=== PATIENT | female | born 1940 | race Caucasian/White ===

== ENCOUNTER → 2017-12-08 | Outpatient (CLI) | payer OTHER ==
[~2017-12-08] MED LIST: ALBU90OI INH; CEPH500 PO; CHOL10002 PO; LEVSOD75 PO; Prednisone20 MG PO; SPIRIVA RESPIMAT4 G1 IH
== END | disposition home or self-care (01) ==
LOC: PLD 07:44 → LAB SHORT 07:44
DX: C44.329 Squamous cell carcinoma of skin of other parts of face (principal); L57.8 Other skin changes due to chronic exposure to nonionizing radiation
CPT/HCPCS: 88305

== ENCOUNTER → 2018-05-17 | Outpatient (CLI) | payer OTHER | END | disposition home or self-care (01) | LOC: LAB SHORT 11:50 → LAB 11:50 | DX: E03.9 Hypothyroidism, unspecified (principal) | CPT/HCPCS: 84443 ==

== ENCOUNTER 2019-06-07 16:47 | Observation (INO) | payer OTHER ==
[~2019-06-07] VITALS: Ht 165.1 cm; Wt 40.9 kg
[2019-06-07 17:21] LABS: BASOPHILS ABSOLUTE AUTO 0.09 K/mm3 (0.00-0.23); BASOPHILS PERCENT AUTO 1 % (0-2); EOSINOPHILS ABSOLUTE AUTO 0.35 K/mm3 (0.00-0.68); EOSINOPHILS PERCENT AUTO 4 % (0-6); Hematocrit 44.2 % (33.0-51.0); Hemoglobin 14.3 g/dL (11.5-16.0); IMMATURE GRAN ABSOLUTE AUTO 0.02 K/mm3 (0.00-0.10); IMMATURE GRAN PERCENT AUTO 0 % (0-1); LYMPHOCYTES ABSOLUTE AUTO 2.55 K/mm3 (0.84-5.20); LYMPHOCYTES PERCENT AUTO 31 % (21-46); MONOCYTES ABSOLUTE AUTO 0.66 K/mm3 (0.16-1.47); MONOCYTES PERCENT AUTO 8 % (4-13); Mean Corpuscular HGB 30.3 pg (26.0-34.0); Mean Corpuscular HGB Conc 32.4 g/dL (31.5-36.5); Mean Corpuscular Volume 94 fL (80-100); Mean Platelet Volume 9.9 fL (9.1-12.4); NEUTROPHILS ABSOLUTE AUTO 4.57 K/mm3 (1.96-9.15); NEUTROPHILS PERCENT AUTO 56 % (41-73); Platelet Count 312 K/mm3 (150-400); RDW Coefficient Variation 13.6 % (11.7-14.2); RDW Standard Deviation 47.2 fL (35.1-46.3); Red Blood Cell Count 4.72 M/mm3 (3.80-5.20); White Blood Cell Count 8.24 K/mm3 (4.00-11.30)
[2019-06-07 17:48] LABS: Alanine Aminotransfer (ALT/SGP 26 U/L (12-78); Albumin, Blood 4.1 g/dL (3.4-5.0); Albumin/Globulin Ratio 1.1 (0.8-1.8); Alk Phos 76 U/L (50-136); Anion Gap 6 mmol/L (6-16); Aspartate Aminotrans (AST/SGOT 22 U/L (12-37); Bilirubin, Total 0.5 mg/dL (0.1-1.0); Blood Urea Nitrogen 14 mg/dL (8-24); Bun/Creatinine Ratio 20.3 (12.0-20.0); CO2, Blood 28 mmol/L (21-32); Calcium, Blood 9.7 mg/dL (8.5-10.1); Chloride, Blood 99 mmol/L (98-108); Creatinine, Blood 0.69 mg/dL (0.40-1.00); Globulin, Blood 3.7 g/dL (2.2-4.0); Glomerular Filtration Rate >60 (60-); Glucose, Blood 87 mg/dL (70-99); Potassium, Blood 3.9 mmol/L (3.5-5.5); Sodium, Blood 133 mmol/L (136-145); Total Protein, Blood 7.8 g/dL (6.4-8.2)
[2019-06-08 04:45] LABS: BASOPHILS ABSOLUTE AUTO 0.07 K/mm3 (0.00-0.23); BASOPHILS PERCENT AUTO 1 % (0-2); EOSINOPHILS ABSOLUTE AUTO 0.31 K/mm3 (0.00-0.68); EOSINOPHILS PERCENT AUTO 5 % (0-6); Hematocrit 38.7 % (33.0-51.0); Hemoglobin 12.7 g/dL (11.5-16.0); IMMATURE GRAN ABSOLUTE AUTO 0.01 K/mm3 (0.00-0.10); IMMATURE GRAN PERCENT AUTO 0 % (0-1); LYMPHOCYTES ABSOLUTE AUTO 2.02 K/mm3 (0.84-5.20); LYMPHOCYTES PERCENT AUTO 33 % (21-46); MONOCYTES ABSOLUTE AUTO 0.53 K/mm3 (0.16-1.47); MONOCYTES PERCENT AUTO 9 % (4-13); Mean Corpuscular HGB 31.2 pg (26.0-34.0); Mean Corpuscular HGB Conc 32.8 g/dL (31.5-36.5); Mean Corpuscular Volume 95 fL (80-100); Mean Platelet Volume 9.8 fL (9.1-12.4); NEUTROPHILS ABSOLUTE AUTO 3.27 K/mm3 (1.96-9.15); NEUTROPHILS PERCENT AUTO 53 % (41-73); Platelet Count 273 K/mm3 (150-400); RDW Coefficient Variation 13.5 % (11.7-14.2); RDW Standard Deviation 47.7 fL (35.1-46.3); Red Blood Cell Count 4.07 M/mm3 (3.80-5.20); White Blood Cell Count 6.21 K/mm3 (4.00-11.30)
[2019-06-08 05:10] LABS: Anion Gap 5 mmol/L (6-16); Blood Urea Nitrogen 10 mg/dL (8-24); Bun/Creatinine Ratio 14.7 (12.0-20.0); CO2, Blood 28 mmol/L (21-32); Calcium, Blood 8.3 mg/dL (8.5-10.1); Chloride, Blood 105 mmol/L (98-108); Creatinine, Blood 0.68 mg/dL (0.40-1.00); Glomerular Filtration Rate >60 (60-); Glucose, Blood 80 mg/dL (70-99); Sodium, Blood 138 mmol/L (136-145)
--- NOTE | 2019-06-08 05:34 | NUR ---
SHIFT SUMMARY PT ADMITTED WITH PARTIAL SBO. IS ALERT AND ORIENTED, UP WITH SBA TO BATHROOM. PT STATES SHE HAD A BOWEL MOVEMENT YESTERDAY AM. FLEET ENEMA ORDERED, BUT PT REFUSED STATES SHE WILL TAKE A SUPPOSITORY IF NEEDED. BOWEL SOUND HYPOACTIVE, PT DENIES PAIN UPON ASSESSMENT. HAS THE URGE TO HAVE BM, BUT UNABLE TO DURING THE NIGHT. NO ACUTE EVENTS NOTED DURING THE NIGHT. TELE APPLIED WELL AND READS NSR WITH PAC'S. WILL CONTINUE TO MONITOR.
--- NOTE | 2019-06-08 11:41 | NUR ---
Advance Directive Education attempted. Upon receiving a referral requesting advance directive education, I spoke with patient about the education. Patient stated that she has an advance directive form sitting on her table at home and has not filled it out. Patient declined having any further education about the advance directive.
--- NOTE | 2019-06-08 18:06 | NUR ---
SHIFT SUMMARY THE PATIENT PRESENTED THIS SHIFT A&O X4, WITH DIMINISHED LUNG SOUNDS AND WITH VITALS WNL. THE PATIENT HAD A B/M THIS MORNING THAT WAS LARGED SOFT AND FORMED. THE PATIENT HAD X-RAYS THIS AM AND DR. ALCOCER WAS CONSULTED. THE PATIENT WAS ELEVATED TO FULL LIQUID DIET FOR DINNER AND CAN BE ADVANCED TOLERATED. THE PATIENT IS EATING HER DINNER AT THIS, WILL CONTINUE TO MONITOR.
[2019-06-09 04:55] LABS: Hematocrit 37.4 % (33.0-51.0); Hemoglobin 12.4 g/dL (11.5-16.0); Mean Corpuscular HGB 30.9 pg (26.0-34.0); Mean Corpuscular HGB Conc 33.2 g/dL (31.5-36.5); Mean Corpuscular Volume 93 fL (80-100); Mean Platelet Volume 10.1 fL (9.1-12.4); Platelet Count 254 K/mm3 (150-400); RDW Coefficient Variation 13.4 % (11.7-14.2); RDW Standard Deviation 45.6 fL (35.1-46.3); Red Blood Cell Count 4.01 M/mm3 (3.80-5.20); White Blood Cell Count 5.75 K/mm3 (4.00-11.30)
[2019-06-09 05:15] LABS: Anion Gap 4 mmol/L (6-16); Blood Urea Nitrogen 8 mg/dL (8-24); Bun/Creatinine Ratio 11.3 (12.0-20.0); CO2, Blood 28 mmol/L (21-32); Calcium, Blood 8.5 mg/dL (8.5-10.1); Chloride, Blood 105 mmol/L (98-108); Creatinine, Blood 0.71 mg/dL (0.40-1.00); Glomerular Filtration Rate >60 (60-); Glucose, Blood 82 mg/dL (70-99); Potassium, Blood 4.6 mmol/L (3.5-5.5); Sodium, Blood 137 mmol/L (136-145)
--- NOTE | 2019-06-09 06:28 | NUR ---
SHIFT SUMMARY PT SLEPT WELL T/O NIGHT. IVF'S CONTINUE WITHOUT DIFFICULTY. UP TO BATHROOM PER SELF. TELE NSR WITH RATE IN THE 60'S. NO ACUTE EVENTS NOTED DURING THE NIGHT, WILL CONTINUE TO MONITOR.
[2019-06-09] MEDS ORDERED: MIRALAX17 GM PO (10:07)
--- NOTE | 2019-06-09 10:07 | NUR ---
PATIENT TRANSFER THE PATIENT WAS TRANSFERRED TO ICU #8 PER DOCTOR REQUEST. THE PATIENT WAS TRANSFERRED AFTER REPORT WAS GIVEN TO ICU NURSE ANDRAE LAMAR.
--- NOTE | 2019-06-09 12:11 | NUR ---
Constipation Nutrition Education Completed.
--- NOTE | 2019-06-09 15:00 | NUR ---
PATIENT DISCHARGE THE PATIENT WAS DISCHARGED HOME WITH HER FAMILY, AFTER DISCHARGE INSTRUCTIONS WERE GIVEN TO THE PATIENT. THE PATIENT LEFT THE HOSPITAL VIA WHEELCHAIR, WITHOUT CONCERN OR COMPLAINT.
== END 2019-06-09 15:21 | disposition home or self-care (01) ==
LOC: ER 16:47 → MEDS 16:48 → ENPENDDIS 06-09 09:46 → MEDS 06-09 15:21
PROVIDERS: Physician Assistant; ADMIT Internal Medicine
DX: K56.600 Partial intestinal obstruction, unspecified as to cause (principal); K59.00 Constipation, unspecified; E03.9 Hypothyroidism, unspecified; F17.200 Nicotine dependence, unspecified, uncomplicated; Z79.899 Other long term (current) drug therapy; Z90.49 Acquired absence of other specified parts of digestive tract
CPT/HCPCS: 36415; 74018; 74176; 80048; 80053; 83690; 84443; 85025; 85027; 96360; 96361; 99285-25; G0378; J7030; J7120

== ENCOUNTER 2020-04-12 19:31 | Emergency (ER) | payer OTHER ==
[~2020-04-12] VITALS: Ht 165.1 cm; Wt 43.1 kg
[~2020-04-12 19:31] MED LIST changes: +MIRALAX17 GM PO
[2020-04-12 20:08] LABS: BASOPHILS ABSOLUTE AUTO 0.08 K/mm3 (0.00-0.23); BASOPHILS PERCENT AUTO 1 % (0-2); EOSINOPHILS PERCENT AUTO 1 % (0-6); Hematocrit 33.8 % (33.0-51.0); Hemoglobin 10.7 g/dL (11.5-16.0); IMMATURE GRAN ABSOLUTE AUTO 0.04 K/mm3 (0.00-0.10); IMMATURE GRAN PERCENT AUTO 0 % (0-1); LYMPHOCYTES ABSOLUTE AUTO 1.08 K/mm3 (0.84-5.20); LYMPHOCYTES PERCENT AUTO 12 % (21-46); MONOCYTES ABSOLUTE AUTO 0.52 K/mm3 (0.16-1.47); MONOCYTES PERCENT AUTO 6 % (4-13); Mean Corpuscular HGB 28.4 pg (26.0-34.0); Mean Corpuscular HGB Conc 31.7 g/dL (31.5-36.5); Mean Corpuscular Volume 90 fL (80-100); Mean Platelet Volume 9.7 fL (9.1-12.4); NEUTROPHILS ABSOLUTE AUTO 7.33 K/mm3 (1.96-9.15); NEUTROPHILS PERCENT AUTO 80 % (41-73); Platelet Count 422 K/mm3 (150-400); RDW Coefficient Variation 13.7 % (11.7-14.2); RDW Standard Deviation 44.7 fL (35.1-46.3); Red Blood Cell Count 3.77 M/mm3 (3.80-5.20); White Blood Cell Count 9.15 K/mm3 (4.00-11.30)
[2020-04-12 20:20] LABS: Alanine Aminotransfer (ALT/SGP 18 U/L (12-78); Albumin, Blood 3.3 g/dL (3.4-5.0); Alk Phos 58 U/L (50-136); Anion Gap 8 mmol/L (6-16); Aspartate Aminotrans (AST/SGOT 20 U/L (12-37); Bilirubin, Total 0.3 mg/dL (0.1-1.0); Blood Urea Nitrogen 13 mg/dL (8-24); Bun/Creatinine Ratio 19.4 (12.0-20.0); CO2, Blood 24 mmol/L (21-32); Calcium, Blood 8.5 mg/dL (8.5-10.1); Chloride, Blood 106 mmol/L (98-108); Creatinine, Blood 0.67 mg/dL (0.40-1.00); Globulin, Blood 3.4 g/dL (2.2-4.0); Glomerular Filtration Rate >60 (60-); Glucose, Blood 117 mg/dL (70-99); Sodium, Blood 138 mmol/L (136-145); Total Protein, Blood 6.7 g/dL (6.4-8.2)
[2020-04-12] MEDS ORDERED: Zofran4 MG PO (20:48)
== END 2020-04-12 21:39 | disposition home or self-care (01) ==
LOC: ER 19:31
PROVIDERS: Physician Assistant
DX: K29.70 Gastritis, unspecified, without bleeding (principal)
CPT/HCPCS: 80053; 83690; 85025; 99283; A9270-GY; J7030

== ENCOUNTER 2020-12-15 14:26 | Emergency (ER) | payer OTHER ==
[~2020-12-15] VITALS: Ht 165.1 cm; Wt 43.1 kg
[~2020-12-15 14:26] MED LIST changes: +CITA20 PO; +DONE5 PO; +MEGE40T PO; +Zofran4 MG PO
[2020-12-15 14:57] LABS: BASOPHILS ABSOLUTE AUTO 0.09 K/mm3 (0.00-0.23); BASOPHILS PERCENT AUTO 1 % (0-2); EOSINOPHILS ABSOLUTE AUTO 0.22 K/mm3 (0.00-0.68); EOSINOPHILS PERCENT AUTO 2 % (0-6); Hemoglobin 11.5 g/dL (11.5-16.0); IMMATURE GRAN ABSOLUTE AUTO 0.05 K/mm3 (0.00-0.10); IMMATURE GRAN PERCENT AUTO 0 % (0-1); LYMPHOCYTES ABSOLUTE AUTO 1.57 K/mm3 (0.84-5.20); LYMPHOCYTES PERCENT AUTO 13 % (21-46); MONOCYTES ABSOLUTE AUTO 0.77 K/mm3 (0.16-1.47); MONOCYTES PERCENT AUTO 6 % (4-13); Mean Corpuscular HGB 27.7 pg (26.0-34.0); Mean Corpuscular HGB Conc 30.3 g/dL (31.5-36.5); Mean Corpuscular Volume 92 fL (80-100); Mean Platelet Volume 9.6 fL (9.1-12.4); NEUTROPHILS ABSOLUTE AUTO 9.72 K/mm3 (1.96-9.15); NEUTROPHILS PERCENT AUTO 78 % (41-73); Platelet Count 465 K/mm3 (150-400); RDW Standard Deviation 50.5 fL (35.1-46.3); Red Blood Cell Count 4.15 M/mm3 (3.80-5.20); White Blood Cell Count 12.42 K/mm3 (4.00-11.30)
[2020-12-15] MEDS ORDERED: ASPI81CH PO (14:57)
[2020-12-15 15:07] LABS: Alanine Aminotransfer (ALT/SGP 17 U/L (12-78); Albumin, Blood 3.1 g/dL (3.4-5.0); Albumin/Globulin Ratio 0.9 (0.8-1.8); Alk Phos 82 U/L (50-136); Anion Gap 5 mmol/L (6-16); Aspartate Aminotrans (AST/SGOT 36 U/L (12-37); Bilirubin, Total 0.3 mg/dL (0.1-1.0); Blood Urea Nitrogen 14 mg/dL (8-24); Bun/Creatinine Ratio 17.4 (12.0-20.0); CO2, Blood 27 mmol/L (21-32); Calcium, Blood 8.1 mg/dL (8.5-10.1); Chloride, Blood 103 mmol/L (98-108); Globulin, Blood 3.6 g/dL (2.2-4.0); Glomerular Filtration Rate >60 (60-); Glucose, Blood 117 mg/dL (70-99); Potassium, Blood 4.4 mmol/L (3.5-5.5); Sodium, Blood 135 mmol/L (136-145); Total Protein, Blood 6.7 g/dL (6.4-8.2)
[2020-12-15 16:13] LABS: Source, Urine Clean Catch
[2020-12-15 16:18] LABS: Appearance, Urine Hazy (Clear); Blood, Urine 4+ (Neg); Color, Urine Yellow (P-Yellow); Glucose Qualitative, Urine Neg (Neg); Ketones, Urine Neg (Neg); Leukocyte Esterase, Urine 2+ (Neg); Nitrite, Urine Pos (Neg); Protein, Urine 2+ (Neg); Specific Gravity, Urine 1.025 (1.003-1.022); Urobilinogen, Urine NORM (Normal)
[2020-12-15 16:31] LABS: Bilirubin, Urine 1+ (Neg)
[2020-12-15 16:33] LABS: Bacteria Many /hpf; Granular Casts 0-2 /lpf (0); Hyaline Casts 0-2 /lpf (0-2); Red Blood Cells, Urine Not Seen /hpf (0-2); Squamous Epithelial Cells Mod /hpf (Few)
[2020-12-15] MEDS ORDERED: CEFP200 PO (17:10)
== END 2020-12-15 17:40 | disposition home or self-care (01) ==
LOC: ER 14:26
PROVIDERS: Emergency Medicine
DX: N39.0 Urinary tract infection, site not specified (principal); E03.9 Hypothyroidism, unspecified; F17.210 Nicotine dependence, cigarettes, uncomplicated; Z79.899 Other long term (current) drug therapy
CPT/HCPCS: 80053; 81001; 85025; 87077; 87086; 87186; 93005; 93010; 99284-25; A9270

== ENCOUNTER 2020-12-27 19:06 | Inpatient (IN) | payer OTHER ==
[~2020-12-27] VITALS: Ht 160 cm; Wt 48.0 kg
[~2020-12-27 19:06] MED LIST changes: +ASPI81CH PO; +CEFP200 PO
[2020-12-27 19:43] LABS: BASOPHILS ABSOLUTE AUTO 0.08 K/mm3 (0.00-0.23); BASOPHILS PERCENT AUTO 1 % (0-2); EOSINOPHILS ABSOLUTE AUTO 0.05 K/mm3 (0.00-0.68); EOSINOPHILS PERCENT AUTO 0 % (0-6); Hematocrit 35.4 % (33.0-51.0); Hemoglobin 11.1 g/dL (11.5-16.0); IMMATURE GRAN PERCENT AUTO 1 % (0-1); LYMPHOCYTES PERCENT AUTO 8 % (21-46); MONOCYTES ABSOLUTE AUTO 0.74 K/mm3 (0.16-1.47); MONOCYTES PERCENT AUTO 4 % (4-13); Mean Corpuscular HGB Conc 31.4 g/dL (31.5-36.5); Mean Corpuscular Volume 89 fL (80-100); Mean Platelet Volume 9.6 fL (9.1-12.4); NEUTROPHILS ABSOLUTE AUTO 15.24 K/mm3 (1.96-9.15); NEUTROPHILS PERCENT AUTO 86 % (41-73); Platelet Count 446 K/mm3 (150-400); RDW Coefficient Variation 14.9 % (11.7-14.2); RDW Standard Deviation 49.1 fL (35.1-46.3); Red Blood Cell Count 3.97 M/mm3 (3.80-5.20); White Blood Cell Count 17.61 K/mm3 (4.00-11.30)
[2020-12-27 20:07] LABS: Alanine Aminotransfer (ALT/SGP 14 U/L (12-78); Albumin, Blood 3.1 g/dL (3.4-5.0); Alk Phos 79 U/L (50-136); Anion Gap 5 mmol/L (6-16); Aspartate Aminotrans (AST/SGOT 19 U/L (12-37); Bilirubin, Total 0.3 mg/dL (0.1-1.0); Blood Urea Nitrogen 15 mg/dL (8-24); Bun/Creatinine Ratio 24.7 (12.0-20.0); CO2, Blood 29 mmol/L (21-32); Calcium, Blood 8.7 mg/dL (8.5-10.1); Chloride, Blood 100 mmol/L (98-108); Creatinine, Blood 0.61 mg/dL (0.40-1.00); Globulin, Blood 3.2 g/dL (2.2-4.0); Glomerular Filtration Rate >60 (60-); Glucose, Blood 116 mg/dL (70-99); Potassium, Blood 3.5 mmol/L (3.5-5.5); Sodium, Blood 134 mmol/L (136-145); Total Protein, Blood 6.3 g/dL (6.4-8.2)
--- NOTE | 2020-12-28 04:34 | NUR ---
SHIFT SUMMARY PT NEW ADMIT THIS SHIFT. AAOX4. NPO. PT REPORTING MINIMAL DISCOMFORT SINCE ARRIVAL TO FLOOR. ABD DISTENDED/FIRM, HYPOACTIVE BTx4. IVF PER ORDERS. ORIENTED TO ROOM + CALL LIGHT USE. PT UP TO RESTROOM WITH X1 MODERATE SIZED SOFT STOOL, PT REPORTING "RELIEF" AFTERWARDS AND IS NOW RESTING WELL IN BED WITH CALL LIGHT IN REACH. AWAITING LAB RESULTS.
[2020-12-28 05:00] LABS: BASOPHILS ABSOLUTE AUTO 0.06 K/mm3 (0.00-0.23); BASOPHILS PERCENT AUTO 1 % (0-2); EOSINOPHILS ABSOLUTE AUTO 0.19 K/mm3 (0.00-0.68); EOSINOPHILS PERCENT AUTO 2 % (0-6); Hematocrit 31.7 % (33.0-51.0); IMMATURE GRAN ABSOLUTE AUTO 0.06 K/mm3 (0.00-0.10); IMMATURE GRAN PERCENT AUTO 1 % (0-1); LYMPHOCYTES PERCENT AUTO 17 % (21-46); MONOCYTES ABSOLUTE AUTO 0.75 K/mm3 (0.16-1.47); MONOCYTES PERCENT AUTO 6 % (4-13); Mean Corpuscular HGB 27.9 pg (26.0-34.0); Mean Corpuscular HGB Conc 31.5 g/dL (31.5-36.5); Mean Corpuscular Volume 88 fL (80-100); Mean Platelet Volume 9.4 fL (9.1-12.4); NEUTROPHILS ABSOLUTE AUTO 9.08 K/mm3 (1.96-9.15); NEUTROPHILS PERCENT AUTO 75 % (41-73); Platelet Count 394 K/mm3 (150-400); RDW Coefficient Variation 14.8 % (11.7-14.2); RDW Standard Deviation 48.2 fL (35.1-46.3); Red Blood Cell Count 3.59 M/mm3 (3.80-5.20); White Blood Cell Count 12.14 K/mm3 (4.00-11.30)
[2020-12-28 05:24] LABS: Alanine Aminotransfer (ALT/SGP 10 U/L (12-78); Albumin, Blood 2.6 g/dL (3.4-5.0); Albumin/Globulin Ratio 0.9 (0.8-1.8); Alk Phos 71 U/L (50-136); Anion Gap 5 mmol/L (6-16); Aspartate Aminotrans (AST/SGOT 16 U/L (12-37); Bilirubin, Total 0.4 mg/dL (0.1-1.0); Blood Urea Nitrogen 15 mg/dL (8-24); Bun/Creatinine Ratio 23.9 (12.0-20.0); CO2, Blood 26 mmol/L (21-32); Calcium, Blood 7.8 mg/dL (8.5-10.1); Chloride, Blood 106 mmol/L (98-108); Creatinine, Blood 0.63 mg/dL (0.40-1.00); Globulin, Blood 2.8 g/dL (2.2-4.0); Glomerular Filtration Rate >60 (60-); Glucose, Blood 79 mg/dL (70-99); Potassium, Blood 4.4 mmol/L (3.5-5.5); Sodium, Blood 137 mmol/L (136-145); Total Protein, Blood 5.4 g/dL (6.4-8.2)
--- NOTE | 2020-12-28 13:29 | NUR ---
BRADYCARDIC/HYPOTENSION ENRRIQUE W/TELE CALLED THIS RN TO REPORT THAT PT HR WAS CONTINUING TO DROP INTO THE 40'S/50'S WITH INCREASING PAC'S AND PVC'S. PT WOKE EASILY, DENIES ANY NEW CP/SOB/CHANGE IN SX. BP 86/86 LYING DOWN W/HR 66. DR NEVAREZTRATE NOTIFIED AND NEW ORDER FOR 1L BOLUS NS OBTAINED.
--- NOTE | 2020-12-28 18:28 | NUR ---
SHIFT SUMMARY PT HAS SHOWN IMPROVEMENT SINCE RECIEVING 1L BOLUS. BP AND HR APPEAR TO HAVE STABALIZED. PT HAS HAD MULTIPLE LIQUID BM T/O SHIFT. CLEAR LIQUIDS BUT NPO AT MIDNIGHT FOR OR TOMORROW. SBA FOR ALL TRANSFERS FOR WEAKNESS.
[2020-12-28 21:09] LABS: Influenza A, PCR Negative (NEGATIVE); Influenza B, PCR Negative (NEGATIVE); Resp Syncytial Virus, PCR Negative (NEGATIVE); SARS-Cov-2 (COVID-19) PCR, MMC Negative (NEGATIVE)
[2020-12-29 04:58] LABS: BASOPHILS ABSOLUTE AUTO 0.08 K/mm3 (0.00-0.23); BASOPHILS PERCENT AUTO 1 % (0-2); EOSINOPHILS ABSOLUTE AUTO 0.37 K/mm3 (0.00-0.68); EOSINOPHILS PERCENT AUTO 5 % (0-6); Hematocrit 30.5 % (33.0-51.0); Hemoglobin 9.3 g/dL (11.5-16.0); IMMATURE GRAN ABSOLUTE AUTO 0.03 K/mm3 (0.00-0.10); IMMATURE GRAN PERCENT AUTO 0 % (0-1); LYMPHOCYTES ABSOLUTE AUTO 1.52 K/mm3 (0.84-5.20); LYMPHOCYTES PERCENT AUTO 19 % (21-46); MONOCYTES ABSOLUTE AUTO 0.43 K/mm3 (0.16-1.47); MONOCYTES PERCENT AUTO 5 % (4-13); Mean Corpuscular HGB 27.7 pg (26.0-34.0); Mean Corpuscular HGB Conc 30.5 g/dL (31.5-36.5); Mean Corpuscular Volume 91 fL (80-100); Mean Platelet Volume 9.5 fL (9.1-12.4); NEUTROPHILS ABSOLUTE AUTO 5.64 K/mm3 (1.96-9.15); NEUTROPHILS PERCENT AUTO 70 % (41-73); Platelet Count 360 K/mm3 (150-400); RDW Coefficient Variation 14.9 % (11.7-14.2); RDW Standard Deviation 49.6 fL (35.1-46.3); Red Blood Cell Count 3.36 M/mm3 (3.80-5.20); White Blood Cell Count 8.07 K/mm3 (4.00-11.30)
[2020-12-29 05:15] LABS: Alanine Aminotransfer (ALT/SGP 9 U/L (12-78); Albumin, Blood 2.3 g/dL (3.4-5.0); Albumin/Globulin Ratio 0.9 (0.8-1.8); Alk Phos 69 U/L (50-136); Anion Gap 7 mmol/L (6-16); Aspartate Aminotrans (AST/SGOT 16 U/L (12-37); Bilirubin, Total 0.4 mg/dL (0.1-1.0); Blood Urea Nitrogen 10 mg/dL (8-24); Bun/Creatinine Ratio 15.6 (12.0-20.0); CO2, Blood 23 mmol/L (21-32); Calcium, Blood 7.7 mg/dL (8.5-10.1); Chloride, Blood 107 mmol/L (98-108); Creatinine, Blood 0.64 mg/dL (0.40-1.00); Globulin, Blood 2.5 g/dL (2.2-4.0); Glomerular Filtration Rate >60 (60-); Glucose, Blood 68 mg/dL (70-99); Magnesium, Blood 1.7 mg/dL (1.6-2.4); Phosphorus, Blood 2.1 mg/dL (2.5-4.9); Sodium, Blood 137 mmol/L (136-145); Total Protein, Blood 4.8 g/dL (6.4-8.2)
--- NOTE | 2020-12-29 10:56 | NUR ---
PT TO OR AT 1053
--- NOTE | 2020-12-29 15:20 | NUR ---
BLOOD PRESSURE TRENDING DOWN DR GUTIERREZ NOTIFIED AND NOW AT BEDSIDE BOLUS OF LR HOB DOWN NEW ORDER TO DECREASE EPIDURAL TO 6 MCG C PER EPIDURAL PT IS ALERT AND STATES SHE HURTS ALL OVER
--- NOTE | 2020-12-29 16:13 | NUR ---
EPIDURAL SITE CLEAR INTACT
--- NOTE | 2020-12-29 16:26 | NUR ---
PT ARRIVED BACK TO UNIT FROM PACU AT APROX 1600. PICCO DRESSING WITH 3 SMALL DOTS OF DRAINAGE PRESENT, FOAM COMPRESSED. EPIDURAL IN PLACE RUNNING AT 6 CONTINUOUS, PT RATES PAIN 1/10, SENSATION TO BLE, DECREASED SENSATION TO ABD BUT STATES SHE CAN FEEL PRESSURE DURING DERMATOME ASSESSMENT.
[2020-12-30 05:06] LABS: Hematocrit 32.1 % (33.0-51.0); Hemoglobin 9.8 g/dL (11.5-16.0); Mean Corpuscular HGB 27.6 pg (26.0-34.0); Mean Corpuscular HGB Conc 30.5 g/dL (31.5-36.5); Mean Corpuscular Volume 90 fL (80-100); Mean Platelet Volume 9.8 fL (9.1-12.4); Platelet Count 360 K/mm3 (150-400); RDW Coefficient Variation 14.4 % (11.7-14.2); RDW Standard Deviation 47.6 fL (35.1-46.3); Red Blood Cell Count 3.55 M/mm3 (3.80-5.20); White Blood Cell Count 17.87 K/mm3 (4.00-11.30)
--- NOTE | 2020-12-30 05:21 | NUR ---
SHIFT SUMMARY POD#1. AAOX4. DISCOMFORT CONTROLLED WITH EPIDURAL. NO NAUSEA/EMESIS. ABD INCISION WITH EDDI C/D/I. AVELAR SECURE WITH SMALL AMOUNT URINE OUT. REPOSITIONS WELL WITH MINIMAL ASSIST. HYPOTENSION NOTED. PT AWAKENED EASILY T/O NIGHT, DENYING SYMPTOMS. NGT SECURED/CLAMPED. PT RESTING IN SMALL SEGMENTS T/O NIGHT. EPIDURAL Q1H CHECKS TILL 1600 TODAY. PT CURRENTLY RESTING WITH CALL LIGHT IN REACH.
--- NOTE | 2020-12-30 11:32 | NUR ---
NGT TO LIS, PT OOB TO CHAIR, 2 PERSON ASSIST.
--- NOTE | 2020-12-30 12:30 | NUR ---
TONY TURCIOS'Tiffany, PT TOLERATED WELL.
--- NOTE | 2020-12-30 19:05 | NUR ---
SUMMARY DENIED ANY PAIN ALL DAY, DENIES ANY NAUSEA, TOLERATING CLEAR LIQUIDS WELL, OOB TO CHAIR W/ 2 PERSON ASSIST, GAIT UNSTEADY, ABD DSG C/D/I, NO ACUTE CHANGES THIS SHIFT.
--- NOTE | 2020-12-31 03:32 | NUR ---
SHIFT SUMMARY: POD 2 EDDI SON PATIENT IS ALERT AND ORIENTED X4 WHILE AWAKE. HOWEVER, SHE HAS BEEN ASLEEP MAJORITY OF THE SHIFT BUT IS EASILY AROUSABLE. VS ARE WNL AND IS ON 2L OXYGEN WITH NC. OXYGEN SATS ARE >90%. PAIN IS CONTROLLED WITH EPIDURAL. PATIENT HAD NG TUBE TAKEN OUT YESTERDAY AND HAS BEEN TOLERATING HER CLEAR LIQUIDS WITHOUT NAUSEA. ABD INCISION WITH EDDI DRESSING IS C/D/I. AVELAR IS PATENT WITH YELLOW URINE DRAINING INTO AVELAR BAG. PATIENT IS A 1-2 PERSON SBA WITH FWW AND GAIT BELT. PATIENT IS CURRENTLY RESTING IN BED WITH CALL LIGHT IN REACH. THE PLAN IS TO WEAN PATIENT OFF OF OXYGEN AND TO WORK WITH PT/OT MORE.
[2020-12-31 05:39] LABS: Hematocrit 30.5 % (33.0-51.0); Hemoglobin 9.4 g/dL (11.5-16.0); Mean Corpuscular HGB 27.6 pg (26.0-34.0); Mean Corpuscular HGB Conc 30.8 g/dL (31.5-36.5); Mean Corpuscular Volume 90 fL (80-100); Mean Platelet Volume 9.9 fL (9.1-12.4); Platelet Count 358 K/mm3 (150-400); RDW Coefficient Variation 14.4 % (11.7-14.2); RDW Standard Deviation 47.1 fL (35.1-46.3); White Blood Cell Count 8.46 K/mm3 (4.00-11.30)
[2020-12-31 05:58] LABS: Anion Gap 5 mmol/L (6-16); Blood Urea Nitrogen 10 mg/dL (8-24); Bun/Creatinine Ratio 16.2 (12.0-20.0); CO2, Blood 27 mmol/L (21-32); Calcium, Blood 7.7 mg/dL (8.5-10.1); Chloride, Blood 102 mmol/L (98-108); Creatinine, Blood 0.62 mg/dL (0.40-1.00); Glomerular Filtration Rate >60 (60-); Glucose, Blood 91 mg/dL (70-99); Potassium, Blood 3.5 mmol/L (3.5-5.5); Sodium, Blood 134 mmol/L (136-145)
--- NOTE | 2020-12-31 09:54 | NUR ---
NOTIFIED REGARDING PT'S LOW BP AND DECREASED UOP THIS AM, 500CC NS BOLUS STARTED, PT OOB TO CHAIR STILL WEAK, DENIES ANY PAIN OR NAUSEA, TAKING SMALL AMOUNTS OF CLEAR LIQUIDS, CONT. TO MONITOR FOR ANY CHANGES.
--- NOTE | 2020-12-31 14:04 | NUR ---
OOB TO CHAIR, REPORTS PASSING FLATUS, STARTED ON FULL LIQUIDS FOR LUNCH, TOLERATING FEW SIPS WELL SO FAR, DENIES ANY PAIN OR ANY DISCOMFORT.
--- NOTE | 2020-12-31 15:55 | NUR ---
PT'S EPIDURAL CATH NOTED TO BE DISCONNECTED FROM MAIN TUBING PER ANDRAE ROJAS, PT C/O SOME ABD PAIN, CALL OUT TO OR FOR ANESTHESIOLOGIST TO SEE PT, OR NURSE STATES DR. HERNADEZ WILL SEE PT.
--- NOTE | 2020-12-31 17:42 | NUR ---
PT'S EPIDURAL HAD TO BE DC'D BY DR. SENA, PT TOLERATED WELL, DR. ALCOCER NOTIFIED REGARDING NEED FOR PAIN MEDS, PT REPORTS HAVING 2/10 ABD PAIN AT THIS TIME.
--- NOTE | 2020-12-31 18:21 | NUR ---
SUMMARY OOB TO CHAIR, DENIED ANY PAIN WHILE EPIDURAL IN PLACE, REPORTS PASSING SMALL AMOUNTS OF FLATUS EARLIER BUT PT NOW DENIES PASSING FLATUS AT ALL TODAY, EPIDURAL CATH BECAME DISCONNECTED EARLIER THIS EVENING, DR. SENA HAS DC'D EPIDURAL, NORCO AND DILAUDID ORDERED BY DR. ALCOCER, PT GIVEN 1 NORCO FOR C/O 01/08 PAIN, STATES PAIN IS MORE ON LLQ AND FEELS "CRAMPY" PT HAVING FULL LIQUIDS FOR DINNER, NO OTHER CHANGES THIS SHIFT.
--- NOTE | 2021-01-01 02:56 | NUR ---
SHIFT SUMMARY: POD 3 EDDI STOLLE PATIENT IS ALERT AND ORIENTED X4 WHILE AWAKE. SHE HAS BEEN SLEEPING MAJORITY OF THE SHIFT BUT IS EASILY AROUSABLE. VS ARE WNL AND IS ON 1L OF OXYGEN WITH OXYGEN SATS >90%. PAIN IS CONTROLLED WITH 1 NORCO AND IV DILAUDID ACCORDING TO DAYSHIFT. SHE REPORTS NOT BEING IN PAIN OR WANTING PAIN MEDICATIONS. PAIN MEDICATIONS ARE AVAILABLE TO HER PRN WITH EMAR ORDERS. PATIENT IS TOLERATING FULL LIQUIDS. HER AVELAR WAS TAKEN OUT AT AROUND 2330 LAST NIGHT. SHE TOLERATED IT WELL AND WAS WNL. ABD INCISION WITH EDDI DRESSING IS COMPRESSED WELL C/D/I. SHE IS A 1-2 PERSON SBA WITH FWW AND GAIT BELT. PATIENT IS CURRENTLY SNORING LAYING IN BED. CALL LIGHT WITHIN REACH. THE PLAN IS TO POSSIBLY BE DISCHARED TO SNF TODAY WELL ENCOURAGING FLUIDS PO.
--- NOTE | 2021-01-01 17:41 | NUR ---
SHIFT SUMMARY Patient has denied pain this shift. Bowel tones active x4. Patient passing small amount flatus. No bowel movement today. Patient tolerating small amount full liquid diet. Patient is a SBA to the BSC. 2L O2 via NC. Patient confused at times. Call light within patient reach.
--- NOTE | 2021-01-02 05:25 | NUR ---
SHIFT SUMMARY POD#4 RIGHT HEMICOLECTOMY. AAOX4. DISCOMFORT CONTROLLED WITH X1 NORCO THIS AM. NO NAUSEA/EMESIS. ABD INCISION WITH EDDI C/D/I. PT WITH MULTIPLE SMALL BMs THIS SHIFT + SMALL AMOUNTS OF FLATUS. UP TO BATHROOM SBA WITH FWW. GOOD PO INTAKE + URINE OUTPUT. PT CURRENTLY RESTING IN BED WITH CALL LIGHT IN REACH + BED ALARM ON FOR SAFETY.
[2021-01-02 13:43] LABS: Influenza A, PCR Negative (NEGATIVE); Influenza B, PCR Negative (NEGATIVE); Resp Syncytial Virus, PCR Negative (NEGATIVE); SARS-Cov-2 (COVID-19) PCR, MMC Negative (NEGATIVE)
--- NOTE | 2021-01-02 14:20 | NUR ---
REPORT PHONED TO CLAUDIA AT [facility]. PT IS AGREEABLE FOR PLAN TO DISCHARGE TO [facility]
--- NOTE | 2021-01-02 15:01 | NUR ---
1440 DIASCHARGED VIA WHEELCHAIR WITH [facility] WHEELCHAIR TRANSPORT TO TRAVEL TO [facility]. PT IS IN AGREEMENT WITH PLAN TO DISCHARGE TO SNF
[2021-01-13 13:39] LABS: Performing Lab SYMBIODX; Test Name BIOPSY
== END 2021-01-02 14:48 | DRG 330 ==
LOC: ER 19:06 → SURS 21:46
PROVIDERS: Emergency Medicine; Family Medicine; Internal Medicine; Surgery; ADMIT Internal Medicine
PROC: 0DTF0ZZ Resection of Right Large Intestine, Open Approach (ICD-10-PCS; principal; 2020-12-29 11:30)
DX: C18.0 Malignant neoplasm of cecum (principal); E46 Unspecified protein-calorie malnutrition; Z68.1 Body mass index [BMI] 19.9 or less, adult; R18.8 Other ascites; K56.609 Unspecified intestinal obstruction, unspecified as to partial versus complete obstruction; R64 Cachexia; Z20.822 Contact with and (suspected) exposure to COVID-19; F03.90 Unspecified dementia, unspecified severity, without behavioral disturbance, psychotic disturbance, mood disturbance, and anxiety; E03.9 Hypothyroidism, unspecified; F17.210 Nicotine dependence, cigarettes, uncomplicated; D64.9 Anemia, unspecified; M19.90 Unspecified osteoarthritis, unspecified site; G89.29 Other chronic pain; K59.09 Other constipation; Z79.82 Long term (current) use of aspirin; Z87.440 Personal history of urinary (tract) infections; Z79.818 Long term (current) use of other agents affecting estrogen receptors and estrogen levels
CPT/HCPCS: 0241U; 36415; 74176; 80048; 80053; 83690; 83735; 83880; 84100; 85025; 85027; 88305; 88309; 88341; 88342; 88381; 93005; 93010; 96374; 96375; 97116; 97162; 97165; 97535; 99285-25; A9270; J0295; J1100; J1650; J2405; J2704; J3010; J3480; J7030; J7050; J7120

== ENCOUNTER 2024-08-22 13:59 | Emergency (ER) | payer OTHER ==
[~2024-08-22] VITALS: Ht 167.6 cm; Wt 56.7 kg
[2024-08-22 14:51] LABS: BASOPHILS ABSOLUTE AUTO 0.07 K/mm3 (0.00-0.23); BASOPHILS PERCENT AUTO 1 % (0-2); EOSINOPHILS ABSOLUTE AUTO 0.08 K/mm3 (0.00-0.68); EOSINOPHILS PERCENT AUTO 1 % (0-6); Hematocrit 39.7 % (33.0-51.0); IMMATURE GRAN ABSOLUTE AUTO 0.07 K/mm3 (0.00-0.10); IMMATURE GRAN PERCENT AUTO 1 % (0-1); LYMPHOCYTES PERCENT AUTO 6 % (21-46); MONOCYTES ABSOLUTE AUTO 0.58 K/mm3 (0.16-1.47); MONOCYTES PERCENT AUTO 5 % (4-13); Mean Corpuscular HGB 29.5 pg (26.0-34.0); Mean Corpuscular HGB Conc 32.7 g/dL (31.5-36.5); Mean Corpuscular Volume 90 fL (80-100); Mean Platelet Volume 9.5 fL (9.1-12.4); NEUTROPHILS ABSOLUTE AUTO 11.27 K/mm3 (1.96-9.15); NEUTROPHILS PERCENT AUTO 88 % (41-73); Platelet Count 367 K/mm3 (150-400); RDW Coefficient Variation 13.3 % (11.7-14.2); RDW Standard Deviation 43.8 fL (35.1-46.3); White Blood Cell Count 12.77 K/mm3 (4.00-11.30)
[2024-08-22 15:22] LABS: Albumin, Blood 3.3 g/dL (3.4-5.0); Albumin/Globulin Ratio 0.7 (0.8-1.8); Bilirubin, Total 0.6 mg/dL (0.1-1.0); Bun/Creatinine Ratio 15.4 (12.0-20.0); Calcium, Blood 9.5 mg/dL (8.5-10.1); Creatinine, Blood 0.98 mg/dL (0.40-1.00); Globulin, Blood 4.8 g/dL (2.2-4.0); Potassium, Blood 4.4 mmol/L (3.5-5.5); Thyroid Stimulating Hormone 0.744 uIU/mL (0.360-4.800); Total Protein, Blood 8.1 g/dL (6.4-8.2)
[2024-08-22] MEDS ORDERED: Ipratropium Bromide INH 0.02% 0.5 mg/2.5ML Vial INH SCH (16:10)
[2024-08-22] MEDS ORDERED: PredniSONE 20 MG Tab PO ONE (16:10)
[2024-08-22] MEDS ORDERED: Albuterol 2.5 MG/3 ML VIAL INH SCH (16:10)
[2024-08-22] MEDS ORDERED: BUDESONIDE-FO10.2 G2 INH (20:01)
[2024-08-22] MEDS ORDERED: Prednisone20 MG PO (20:01)
[2024-08-22 20:15] VITALS: BP 97/54
== END 2024-08-22 20:16 | disposition home or self-care (01) ==
LOC: ER 13:59
PROVIDERS: Emergency Medicine
DX: J44.1 Chronic obstructive pulmonary disease with (acute) exacerbation (principal); R55 Syncope and collapse; E03.9 Hypothyroidism, unspecified; Z87.891 Personal history of nicotine dependence; Z79.899 Other long term (current) drug therapy; Z79.82 Long term (current) use of aspirin
CPT/HCPCS: 80053; 84443; 84484; 85025; 85379; 93005; 93010; 94644; 94664; 99285-25; J7512